=== PATIENT | female | born 2000 | race African-American/Black ===

== ENCOUNTER 2020-06-01 13:55 | Emergency (ER) | payer OTHER, SELFPAY ==
[2020-06-01 13:56] VITALS: BP 110/67; PULSE 79; RESP 18; TEMP 36.5; O2SAT 100; BMI 22.5
--- NOTE | 2020-06-01 14:03 | CT_ITS ---
STUDY: CT BRAIN WITHOUT CONTRAST REASON FOR EXAM: Female, 20 years old. WALKED INTO A LAMP -- SLIGHT HEADACHE STILL RADIATION DOSAGE (If Supplied By Facility): CTDIvol = ( 44.99 ) mGy, DLP = ( 762.36 ) mGycm TECHNIQUE: Transaxial CT imaging of the brain was performed without administration of intravenous contrast material. Individualized dose optimization techniques were used for this CT. COMPARISON: No relevant priors. FINDINGS: Normal soft tissue structures. Normal calvarium. Normal size ventricles and extra-axial spaces for the patient''s age. Normal white matter tracts of the cerebral hemispheres. Normal basal ganglia and thalami. Normal brainstem. Normal cerebellum. There is no intracranial hemorrhage. There are no findings of an acute ischemic infarction. Normal visualized paranasal sinuses. CT/Brain/Head without Contrast IMPRESSION: Normal unenhanced CT scan of the brain. Electronically Signed: Tao Huizar, at 14:46 EST , Service support ,
[2020-06-01 15:58] VITALS: BP 120/82
--- NOTE | 2020-06-01 16:06 | ED.DCSUM_ITS ---
History of Present Illness Chief Complaint: Weakness Narrative: Patient presenting secondary to head injury and weakness. Patient reports that on Thursday she suffered a forcible fall where she hit her head on a lamp and cut her forehead. Patient states that she was seen at the wellness center at the [facility], she did not require sutures, and she was recommended to go back to normal activity. Since then she reports that she has been having some lightheadedness, as well as feelings of left-sided weakness. Associated with her left arm, no real numbness. No changes in vision although the patient feels that her vision is somewhat blurry. No double vision. No nausea vomiting or confusion. She is not on any sort of anticoagulants. She is otherwise healthy, no history of smoking hypertension hyperlipidemia diabetes. Review of systems otherwise negative. Past Medical History - Allergies and Home Meds Allergies/Adverse Reactions: Allergies No Known Allergies Allergy (Verified 06/01/20 13:56) Primary Care Physician: Greta Lantigua,Out of [Primary Care Provider] - Prior records reviewed: Yes Past Medical History: None Surgical History: noncontributory Lives: Roommate Smoking Status: Never smoker Alcohol: None Drugs: None Review of Systems All systems negative except as indicated General: Denies: Chills, Fever, Sweats Eyes: Denies: Visual changes - bilaterally, Diplopia ENT: Denies: Rhinorrhea, Sore throat Cardiovascular: Denies: Chest pain, Palpitations Respiratory: Denies: Dyspnea, Cough, Dyspnea on exertion Gastrointestinal: Denies: Abdominal pain, Nausea, Vomiting, Diarrhea, Melena, Hematochezia Genitourinary: Denies: Dysuria, Hematuria, Frequency Musculoskeletal: Denies: Back pain, Extremity Pain Skin: Denies: Rash, Wounds Neurological: Reports: Weakness Physical Exam Vital Signs/Narrative: Vital Signs Temp Pulse Resp BP Pulse Ox 06/01/20 15:58 120/82 H 06/01/20 13:56 97.7 F L 79 18 110/67 100 Inital Vital Signs reviewed: Yes General: Well nourished, Well developed, No Acute Distress Head: Normocephalic, - - Well-healing 5 mm superficial left forehead laceration with minimal surrounding hematoma. No evidence of depressed skull fracture. Eyes: Perrl, EOMI ENT: Moist mucous membranes, No rhinorrhea Neck: Supple, Nontender Cardiovascular: Regular rate, Regular rhythm, No murmurs Respiratory: No distress, CTA bilaterally, Chest nontender Abdomen: Soft, Nontender, Nondistended, Normal bowel sounds Back: Nontender, Normal Inspection Extremities: Nontender, No edema Skin: Normal color, No rash Neurological: Alert, Oriented x3, Cranial nerves II-XII grossly intact, Normal Strength, Normal Sensation, - - No signs of objective numbness or weakness, NIH stroke scale is 0 Psychological: Normal affect, Normal Mood Diagnostic/Tx/Re-eval - Medical Decision Making Patient presented with a head injury and symptoms of numbness. CT imaging was found to be negative no fracture. Patient is low risk for this to be of the possibility of a ischemic stroke, she also does not have any signs or symptoms that would make me feel that this this is otherwise neurologic such as seizure or anything that would require further inpatient work-up. Patient likely has a postconcussive syndrome. She was given return to activity instructions. Patient was discharged in stable condition. ED Disposition - Plan for ED Patient: Disposition: Home or Assisted Living Diagnosis: Concussion Instructions: ED Concussion Additional Instructions: Follow-up with the care center as needed
== END 2020-06-01 16:22 | disposition home or self-care (01) ==
LOC: ED 16:12
PROVIDERS: Emergency Provider Emergency Medicine; PCP Pediatrics
DX: S06.0X9A Concussion with loss of consciousness of unspecified duration, initial encounter (principal); W19.XXXA Unspecified fall, initial encounter; Y93.9 Activity, unspecified; Y92.9 Unspecified place or not applicable; Y99.9 Unspecified external cause status
CPT/HCPCS: 70450; 99282

== ENCOUNTER 2020-11-15 16:44 | Outpatient (CLI) | payer OTHER, SELFPAY | END 2020-11-15 17:00 | LOC: IMMUN 16:48 | PROVIDERS: PCP Pediatrics; Visit Provider Family Medicine | DX: Z23 Encounter for immunization (principal) | CPT/HCPCS: 0001A; 0002A; 91300 ==

== ENCOUNTER 2021-08-20 11:50 | Outpatient (CLI) | payer OTHER, SELFPAY | END 2021-08-20 23:59 | disposition short-term general hospital (02) | LOC: IMMUN 08-28 11:51 | PROVIDERS: PCP Pediatrics; Visit Provider Family Medicine | DX: Z23 Encounter for immunization (principal) ==